=== PATIENT | male | born 1950 | race Caucasian/White ===

== ENCOUNTER 2016-06-27 16:32 | Emergency (ER) | payer MEDICARE, BC ==
[2016-06-27] MEDS ORDERED: MECLIZINE 25 MG TAB PO STA (17:48)
[2016-06-27] MEDS ORDERED: hydrALAZINE HCL 20 MG/ML 1 ML VIAL IVP STA (17:48)
[2016-06-27] MEDS ORDERED: DIAZEPAM 5 MG/ML 2 ML SYRINGE IVP STA (17:48)
--- NOTE | 2016-06-27 18:02 | ED ---
General Adult HPI - General Chief complaint: Dizziness Stated complaint: Abnormal EKG Time Seen by Provider: 06/27/16 17:00 Source: patient, RN notes reviewed Mode of arrival: wheelchair Limitations: no limitations - History of Present Illness Initial comments: This is a 65-year-old male who presents to the emergency department with past medical history significant for hypertension however he has stopped taking his medicines for 5 or 6 years now. Patient states he comes in today because starting last he started getting dizzy with the room was spinning and he made him very nauseous per patient states he even lives down in his bed and he feels as though his bed is tilting. Patient states he went to get evaluated today because of the spinning and he found that his blood pressure was excessively elevated slightly sentiment to the emergency department. Patient states he has a very mild headache in the posterior region patient denies any numbness weakness. Patient denies any blurred vision. Patient denies any recent fever chills or cough. Patient denies any syncopal episodes. Patient denies any near syncopal dizziness or lightheaded episodes. Patient denies any palpitations chest pain difficulty breathing shortness of breath per patient denies abdominal pain patient denies nausea vomiting or diarrhea. - Related Data Home Medications Medication Instructions Recorded Confirmed Stdjikv-[id number]-Obbg [id number] 1 tab PO Q6HR PRN 06/27/16 06/27/16 [Excedrin] Gluc/Cody-MSM#1/C/Yvon/Barry/Bor 1 tab PO DAILY 06/27/16 06/27/16 [Glucosamine-Chondroitin Tablet] Magnesium(Unknown) 1 tab PO DAILY 06/27/16 06/27/16 Rehan Red Krill Oil 1 tab PO DAILY 06/27/16 06/27/16 Previous Rx's Medication Instructions Recorded Meclizine [Antivert] 25 mg PO TID #20 tab 06/27/16 Metoprolol Tartrate [Lopressor] 50 mg PO BID #10 tab 06/27/16 Allergies Allergy/AdvReac Type Severity Reaction Status Date / Time No Known Allergies Allergy Verified 06/27/16 17:20 Review of Systems ROS Statement: Those systems with pertinent positive or pertinent negative responses have been documented in the HPI. ROS Other: All systems not noted in ROS Statement are negative. Past Medical History Past Medical History: Hypertension History of Any Multi-Drug Resistant Organisms: None Reported Past Surgical History: No Surgical Hx Reported Past Psychological History: No Psychological Hx Reported Smoking Status: Never smoker Past Alcohol Use History: Occasional Past Drug Use History: Marijuana General Exam - General Exam Comments Initial Comments: GENERAL: Patient is well-developed and well-nourished. Patient is nontoxic and well- hydrated and is in no acute distress. ENT: Neck is soft and supple. No significant lymphadenopathy is noted. Oropharynx is clear. Moist mucous membranes. Neck has full range of motion without eliciting any pain. EYES: The sclera were anicteric and conjunctiva were pink and moist. Extraocular movements were intact and pupils were equal round and reactive to light. Eyelids were unremarkable. PULMONARY: Unlabored respirations. Good breath sounds bilaterally. No audible rales rhonchi or wheezing was noted. CARDIOVASCULAR: There is a regular rate and rhythm without any murmurs gallops or rubs. ABDOMEN: Soft and nontender with normal bowel sounds. No palpable organomegaly was noted. There is no palpable pulsatile mass. SKIN: Skin is clear with no lesions or rashes and otherwise unremarkable. NEUROLOGIC: Patient is alert and oriented x3. Cranial nerves II through XII are grossly intact. Motor and sensory are also intact. Normal speech, volume and content. Symmetrical smile. MUSCULOSKELETAL: Normal extremities with adequate strength and full range of motion. LYMPHATICS: No significant lymphadenopathy is noted PSYCHIATRIC: Normal psychiatric evaluation. Normal interpersonal interactions appears functionally intact in deals appropriately with others. No signs of depression. No signs of anxiety. Limitations: no limitations Course Vital Signs 06/27/16 06/27/16 06/27/16 16:34 17:40 18:10 Temperature 97.6 F Pulse Rate 78 81 Pulse Rate [ 80 Sitting] Pulse Rate [ 80 Standing] Pulse Rate [ 80 Supine] Respiratory 16 14 15 Rate Blood Pressure 240/123 208/123 Blood Pressure 240/178 [Sitting] Blood Pressure 232/178 [Standing] Blood Pressure 229/140 [Supine] O2 Sat by Pulse 99 99 97 Oximetry 06/27/16 06/27/16 06/27/16 18:19 18:29 18:39 Temperature Pulse Rate 92 96 94 Pulse Rate [ Sitting] Pulse Rate [ Standing] Pulse Rate [ Supine] Respiratory 14 Rate Blood Pressure 195/106 206/109 203/114 Blood Pressure [Sitting] Blood Pressure [Standing] Blood Pressure [Supine] O2 Sat by Pulse 99 98 Oximetry 06/27/16 06/27/16 06/27/16 19:02 19:41 20:18 Temperature Pulse Rate 97 78 Pulse Rate [ Sitting] Pulse Rate [ Standing] Pulse Rate [ Supine] Respiratory 14 16 Rate Blood Pressure 202/101 209/120 190/102 Blood Pressure [Sitting] Blood Pressure [Standing] Blood Pressure [Supine] O2 Sat by Pulse 97 Oximetry Medical Decision Making - Medical Decision Making EKG shows normal sinus rhythm at 77 bpm. It was on a 54 QRS 74 Q-T intervals 398 QTC is 450. Patient's EKG shows no ST segment elevation or depression or T- wave abdomen is noted CT of the brain shows no acute abdomen on a. Chest x-ray shows no acute amount. I gave the patient hydralazine and labetalol about his blood pressure down to 190/102 and a gave him oral metoprolol and sent him home on the same. Patient will follow-up in the next couple days with his doctor. She also appears to have vertigo he will be getting some Antivert to go home with. - Lab Data Result diagrams: 06/27/16 17:56 06/27/16 17:56 Lab Results 06/27/16 06/27/16 06/27/16 Range/Units 17:56 17:56 17:56 WBC 5.3 (3.8-10.6) k/uL RBC 5.13 (4.30-5.90) m/uL Hgb 15.9 (13.0-17.5) gm/dL Hct 46.0 (39.0-53.0) % MCV 89.7 (80.0-100.0) fL MCH 30.9 (25.0-35.0) pg MCHC 34.5 (31.0-37.0) g/dL RDW 12.4 (11.5-15.5) % Plt Count 292 (150-450) k/uL Neutrophils % 60 % Lymphocytes % 29 % Monocytes % 7 % Eosinophils % 1 % Basophils % 1 % Neutrophils # 3.2 (1.3-7.7) k/uL Lymphocytes # 1.5 (1.0-4.8) k/uL Monocytes # 0.4 (0-1.0) k/uL Eosinophils # 0.1 (0-0.7) k/uL Basophils # 0.0 (0-0.2) k/uL PT (9.0-12.0) sec INR (<1.1) APTT (22.0-30.0) sec Sodium 146 H (137-145) mmol/L Potassium 3.6 (3.5-5.1) mmol/L Chloride 100 (98-107) mmol/L Carbon Dioxide 29 (22-30) mmol/L Anion Gap 17 mmol/L BUN 14 (9-20) mg/dL Creatinine 0.90 (0.66-1.25) mg/dL Est GFR (MDRD) Af Amer >60 (>60 ml/min/1.73 sqM) Est GFR (MDRD) Non-Af >60 (>60 ml/min/1.73 sqM) Glucose 107 H (74-99) mg/dL Calcium 9.9 (8.4-10.2) mg/dL Magnesium 2.2 (1.6-2.3) mg/dL Total Bilirubin 1.0 (0.2-1.3) mg/dL AST 33 (17-59) U/L ALT 40 (21-72) U/L Alkaline Phosphatase 72 (38-126) U/L Total Creatine Kinase 86 (55-170) U/L CK-MB (CK-2) 1.1 (0.0-2.4) ng/mL CK-MB (CK-2) Rel Index 1.3 Troponin I <0.012 (0.000-0.034) ng/mL Total Protein 8.5 H (6.3-8.2) g/dL Albumin 5.3 H (3.5-5.0) g/dL 06/27/16 Range/Units 17:56 WBC (3.8-10.6) k/uL RBC (4.30-5.90) m/uL Hgb (13.0-17.5) gm/dL Hct (39.0-53.0) % MCV (80.0-100.0) fL MCH (25.0-35.0) pg MCHC (31.0-37.0) g/dL RDW (11.5-15.5) % Plt Count (150-450) k/uL Neutrophils % % Lymphocytes % % Monocytes % % Eosinophils % % Basophils % % Neutrophils # (1.3-7.7) k/uL Lymphocytes # (1.0-4.8) k/uL Monocytes # (0-1.0) k/uL Eosinophils # (0-0.7) k/uL Basophils # (0-0.2) k/uL PT 11.0 (9.0-12.0) sec INR 1.1 (<1.1) APTT 25.2 (22.0-30.0) sec Sodium (137-145) mmol/L Potassium (3.5-5.1) mmol/L Chloride (98-107) mmol/L Carbon Dioxide (22-30) mmol/L Anion Gap mmol/L BUN (9-20) mg/dL Creatinine (0.66-1.25) mg/dL Est GFR (MDRD) Af Amer (>60 ml/min/1.73 sqM) Est GFR (MDRD) Non-Af (>60 ml/min/1.73 sqM) Glucose (74-99) mg/dL Calcium (8.4-10.2) mg/dL Magnesium (1.6-2.3) mg/dL Total Bilirubin (0.2-1.3) mg/dL AST (17-59) U/L ALT (21-72) U/L Alkaline Phosphatase (38-126) U/L Total Creatine Kinase (55-170) U/L CK-MB (CK-2) (0.0-2.4) ng/mL CK-MB (CK-2) Rel Index Troponin I (0.000-0.034) ng/mL Total Protein (6.3-8.2) g/dL Albumin (3.5-5.0) g/dL Disposition Clinical Impression: Vertigo, Hypertensive urgency Disposition: HOME SELF-CARE Condition: Good Instructions: Hypertension (ED) Prescriptions: Meclizine [Antivert] 25 mg PO TID #20 tab Metoprolol Tartrate [Lopressor] 50 mg PO BID #10 tab Referrals: Arnol Rosen MD [Primary Care Provider] - 1-2 days Time of Disposition: 20:38
[2016-06-27 18:09] LABS: Basophils % (A) 1 %; CH 31.9; CHCM 35.7; Eosinophils # (A) 0.1 k/uL (0-0.7); Eosinophils % (A) 1 %; HDW 2.84; HGB 15.9 gm/dL (13.0-17.5); Luc # (Auto) 0.16; Luc % (Auto) 3; Lymphocytes # (A) 1.5 k/uL (1.0-4.8); Lymphocytes % (A) 29 %; MCH 30.9 pg (25.0-35.0); MCHC 34.5 g/dL (31.0-37.0); MCV 89.7 fL (80.0-100.0); Mean Platelet Volume 6.6; Monocytes # (A) 0.4 k/uL (0-1.0); Monocytes % (A) 7 %; Neutrophils # (A) 3.2 k/uL (1.3-7.7); Neutrophils % (A) 60 %; RBC 5.13 m/uL (4.30-5.90); RDW 12.4 % (11.5-15.5); WBC 5.3 k/uL (3.8-10.6); WBC (Perox) 5.58
[2016-06-27 18:18] LABS: INR 1.1 (<1.1); Partial Thromboplastin Time 25.2 sec (22.0-30.0)
[2016-06-27 18:31] LABS: ALT 40 U/L (21-72); AST 33 U/L (17-59); Alkaline Phosphatase 72 U/L (38-126); Anion Gap 17 mmol/L; Blood Urea Nitrogen 14 mg/dL (9-20); Calcium 9.9 mg/dL (8.4-10.2); Carbon Dioxide 29 mmol/L (22-30); Chloride 100 mmol/L (98-107); Creatine Kinase 86 U/L (55-170); Glucose 107 mg/dL (74-99); Magnesium 2.2 mg/dL (1.6-2.3); Non-African American GFR(MDRD) >60 (>60 ml/min/1.73 sqM); Potassium 3.6 mmol/L (3.5-5.1); Sodium 146 mmol/L (137-145); Total Protein 8.5 g/dL (6.3-8.2)
[2016-06-27 18:43] LABS: Creatine Kinase MB 1.1 ng/mL (0.0-2.4); Troponin I <0.012 ng/mL (0.000-0.034)
--- NOTE | 2016-06-27 19:05 | CT ---
EXAMINATION TYPE: CT brain wo con DATE OF EXAM: 06/27/2016 6:47 PM COMPARISON: NONE HISTORY: Dizziness x 1 week. Hypertension and slight headache. CT DLP: 1029.90 mGycm Automated exposure control for dose reduction was used. FINDINGS: There is cerebral cortical atrophy. There is hypodensity in the periventricular white matter. There i s no mass effect or midline shift. There is no sign of intracranial hemorrhage. The calvarium is inta ct. There is a 1 cm calcification at the surface of the right frontal bone that could be calcified se baceous cyst or osteoma. IMPRESSION: Mild chronic white matter changes. No acute intracranial abnormality.
--- NOTE | 2016-06-27 19:06 | XR ---
EXAMINATION TYPE: XR chest 2V DATE OF EXAM: 06/27/2016 6:50 PM COMPARISON: NONE HISTORY: Chest pain TECHNIQUE: Frontal and lateral views of the chest are obtained. FINDINGS: There is no heart failure nor confluent pneumonic infiltrate. Heart size is normal. There are chest leads. Costophrenic angles are clear. Bony thorax is intact. IMPRESSION: Normal chest.
[2016-06-27] MEDS ORDERED: LABETALOL SYRINGE 5 MG/ML IVP STA (19:50)
[2016-06-27 20:19] VITALS: RESP 16
[2016-06-27] MEDS ORDERED: METOPROLOL TARTRATE 25 MG TAB PO STA (20:36)
[2016-06-27 20:43] VITALS: BP 169/104; PULSE 71
[2016-06-27 20:52] VITALS: TEMP 97.9
== END 2016-06-27 20:53 | disposition home or self-care (01) ==
LOC: EC 16:32
DX: I16.0 Hypertensive urgency (principal); R42 Dizziness and giddiness; I10 Essential (primary) hypertension; Z79.899 Other long term (current) drug therapy
CPT/HCPCS: 99284; 36415; 93005; 80053; 82550; 82553; 83735; 84484; 85025; 85610; 85730; 71020; 70450; 96374; 96375; J0360; J3360